=== PATIENT | female | born 1965 | race Caucasian/White ===

== ENCOUNTER → 2016-12-27 | Outpatient (CLI) | payer BC ==
--- NOTE | 2016-12-27 13:55 | DIAGNOSTIC IMAGING REPORT ---
LEFT FOOT 3 VIEWS CLINICAL HISTORY: Left foot pain. FINDINGS: 3 views of left foot are obtained. No prior studies are available for comparison at the time of dictation. The skeletal structures are well mineralized. No fracture is seen. There is a large plantar calcaneal enthesophyte. Minimal degenerative spurring is seen along the dorsal aspect of the tarsal bones. The joint spaces appear preserved. The overlying soft tissues are within normal limits. IMPRESSION: Plantar heel spur with no acute bony abnormality seen in the left foot. Electronically signed by: Gerber Singleton M.D. 12/27/2016 1:53 PM Dictated Date/Time: 12/27/2016 1:51 PM
== END | disposition home or self-care (01) ==
LOC: C.RADBC 13:14
PROVIDERS: ATTEND Internal Medicine Geriatric Medicine
DX: M79.673 Pain in unspecified foot (principal)

== ENCOUNTER → 2017-04-09 | Outpatient (CLI) | payer BC ==
[2017-04-09 17:49] LABS: BASO ABS # 0.09 K/uL (0-0.2); COMPLETE YES; EOS % 15.4 %; HEMATOCRIT 43.4 % (37-47); IG% 0.3 %; LYMPH ABS # 2.08 K/uL (1.2-3.4); MEAN CELL VOLUME 90.4 fL (80-100); MEAN CORPUSCULAR HEMOGLOBIN 29.4 pg (25-34); MEAN CORPUSCULAR HGB CONC 32.5 g/dl (32-36); MEAN PLATELET VOLUME 11.7 fL (7.4-10.4); MONO % 9.4 %; NEUT % 51.9 %; PLATELET COUNT 361 K/uL (130-400); WHITE BLOOD COUNT 9.46 K/uL (4.8-10.8)
[2017-04-09 18:13] LABS: BLOOD UREA NITROGEN 10 mg/dl (7-18); CARBON DIOXIDE 30 mmol/L (21-32); CHLORIDE 104 mmol/L (98-107); CREATININE 0.97 mg/dl (0.60-1.20); GLUCOSE 82 mg/dl (70-99); POTASSIUM 4.2 mmol/L (3.5-5.1); SODIUM 138 mmol/L (136-145)
[2017-04-09 18:24] LABS: CHOLESTEROL 154 mg/dl (0-200); CHOLESTEROL/HDL RATIO 3.3; HDL CHOLESTEROL 46 mg/dl; LDL CHOLESTEROL CALCULATED 85 mg/dl; TRIGLYCERIDES 117 mg/dl (0-150); VERY LOW DENSITY LIPOPROT CALC 23 mg/dl
== END | disposition home or self-care (01) ==
LOC: C.LABPBG 12:40
PROVIDERS: ATTEND Internal Medicine Geriatric Medicine
DX: M79.7 Fibromyalgia (principal); E03.9 Hypothyroidism, unspecified; G47.30 Sleep apnea, unspecified